=== PATIENT | female | born 1950 | race Hispanic/Latino ===

== ENCOUNTER 2017-01-04 18:34 | Observation (INO) | payer OTHER ==
[~2017-01-04] VITALS: Ht 162.6 cm; Wt 71.5 kg
[~2017-01-04 18:34] MED LIST: ANTIVERT25 MG PO; BACTRIM,SEPT1 TABLET PO; CITRATE OF MAG296 ML PO; COLACE100 MG PO; COZAAR25 MG PO; COZAAR50 MG PO; ELAVIL25 MG PO; ERGOCALCIF50000 UNIT PO; FIORICET,ESG1 TABLET PO; FLEXERIL10 MG PO; FLEXERIL5 MG PO; KEPPRA1000 MG PO; LORTAB 5-325 M1 EACH PO; MECLIZINE HCL25 MG PO; MIRALAX17 GM PO; NAPROXEN500 MG PO; PERCOCET 5/31 TABLET PO; PHENTERMINE HCL30 MG PO; PRAVACHOL10 MG; PRAVASTATIN SOD10 MG PO; PRILOSEC20 MG PO; PYRIDIUM200 MG PO; TRAMADOL HCL50 MG PO; TYLENOL WITH C1 EACH PO; VITAMIN D10000 UNIT; VITAMIN D2400 UNIT PO; ZOFRAN4 MG PO
[2017-01-04 19:10] LABS: HEMATOCRIT 41.2 % (36.0-46.0); MCH 30.2 PG (29.0-34.0); MCHC 32.5 G/DL (30.0-36.0); MCV 92.8 FL (83-99); MEAN PLAT.VOLUME 9.3 uM^3 (9.5-12.4); PLATELET COUNT 312 K/uL (156-360); RBC DIS.WIDTH-CV 12.8 % (11.8-14.6); RBC DIS.WIDTH-SD 42.1 % (39-53); RED BLOOD COUNT 4.44 M/uL (3.80-5.20); WHITE BLOOD COUNT 7.9 K/uL (4.1-10.2)
[2017-01-04 19:20] LABS: CHLORIDE 104 mEq/L (99-109); SODIUM 143 mEq/L (136-147)
[2017-01-04 19:22] LABS: GLUCOSE 139 mg/dL (70-99)
[2017-01-04 19:23] LABS: ANION GAP 9 MEQ/L (2-14)
[2017-01-04 19:24] LABS: TOTAL BILIRUBIN 0.4 mg/dL (0.0-1.0)
[2017-01-04 19:25] LABS: ALKALINE PHOSPHATASE 66 IU/L (3-129)
[2017-01-04 19:26] LABS: GFR ESTIMATE (CALCULATED) > 59 mL/min/
[2017-01-04 19:27] LABS: UREA NITROGEN (BUN) 11 mg/dL (9-23)
[2017-01-04 19:29] LABS: LIPASE 41 U/L (1.0-51.0)
[2017-01-04 19:43] LABS: ADD MIUA? YES; BILIRUBIN NEGATIVE; BLOOD NEGATIVE; COLOR YELLOW ((YELLOW)); GLUCOSE (STRIP) NEGATIVE; KETONES NEGATIVE; LEUKOCYTES MODERATE; NITRITE NEGATIVE; PROTEIN (STRIP) NEGATIVE; SPECIFIC GRAVITY 1.006 (1.000-1.030); UROBILINOGEN 0.2 MG/DL (0.2-1.0)
[2017-01-04 19:50] LABS: BACTERIA RARE /HPF; EPITHELIAL CELLS RARE /HPF; MUCUS TRACE /LPF; RED BLOOD CELLS 0-5 /HPF (0-5); UCUL ADDED? NO; WHITE BLOOD CELLS 15-20 /HPF (0-5)
[2017-01-04 20:12] LABS: TROP-I INTERPRETATION NEGATIVE; TROPONIN-I < 0.01 ng/mL (0.0-0.30)
[2017-01-04 21:46] LABS: TROP-I INTERPRETATION NEGATIVE; TROPONIN-I 0.02 ng/mL (0.0-0.30)
[2017-01-04] MEDS ORDERED: TYLENOL EXTRA500 MG PO (22:07)
[2017-01-04] MEDS ORDERED: ERGOCALCIF50000 UNIT PO (22:08)
[2017-01-04 23:54] VITALS: BP 159/71
[2017-01-05 03:26] LABS: TROP-I INTERPRETATION NEGATIVE; TROPONIN-I < 0.01 ng/mL (0.0-0.30)
[2017-01-05 03:49] VITALS: BP 121/58
[2017-01-05 07:41] LABS: TROP-I INTERPRETATION NEGATIVE; TROPONIN-I < 0.01 ng/mL (0.0-0.30)
[2017-01-05 07:50] LABS: HDL CHOLESTEROL 36 MG/DL (Desirable>=50); LDL CHOLESTEROL 121 mg/dL (Desirable<100); NON-HDL CHOLESTEROL 142 mg/dL (Desirable<160); TOTAL CHOLESTEROL 178 mg/dL (Desirable<200); TRIGLYCERIDES 107 MG/DL (Normal: <150)
[2017-01-05] MEDS ORDERED: MAG-AL PLUS SUS30 ML PO (07:56)
[2017-01-05] MEDS ORDERED: PANTOPRAZOLE SO40 MG PO (07:56)
[2017-01-05] MEDS ORDERED: BACTRIM,SEPT1 TABLET PO (07:56)
[2017-01-05 08:35] VITALS: BP 2125/63
== END 2017-01-05 10:10 | disposition home or self-care (01) ==
LOC: EME 18:34 → EDOF 22:31 → 5WEST 23:35
PROVIDERS: Emergency Medicine; Physician Assistant Medical
DX: N39.0 Urinary tract infection, site not specified (principal); R07.89 Other chest pain; R10.13 Epigastric pain; R01.1 Cardiac murmur, unspecified; G89.29 Other chronic pain; M25.561 Pain in right knee; I10 Essential (primary) hypertension; E55.9 Vitamin D deficiency, unspecified; F32.9 Major depressive disorder, single episode, unspecified; E78.00 Pure hypercholesterolemia, unspecified; E78.5 Hyperlipidemia, unspecified; Z86.73 Personal history of transient ischemic attack (TIA), and cerebral infarction without residual deficits; Z87.891 Personal history of nicotine dependence
CPT/HCPCS: 80053; 80061; 81003; 83690; 84484; 85027; 87077; 87086; 87186; 93005; 93971; 99281; 99285; G0378

== ENCOUNTER 2017-01-29 19:23 | Emergency (ER) | payer OTHER ==
[~2017-01-29] VITALS: Ht 152.4 cm; Wt 72.3 kg
[~2017-01-29 19:23] MED LIST changes: +MAG-AL PLUS SUS30 ML PO; +PANTOPRAZOLE SO40 MG PO; +TYLENOL EXTRA500 MG PO
[2017-01-29] MEDS ORDERED: PERCOCET 5/31 TABLET PO (22:43)
[2017-01-29] MEDS ORDERED: PREDNISONE20 MG PO (22:43)
[2017-01-29 22:58] VITALS: BP 148/64
== END 2017-01-29 22:58 | disposition home or self-care (01) ==
LOC: EME 19:23
DX: S49.92XA Unspecified injury of left shoulder and upper arm, initial encounter (principal); M25.512 Pain in left shoulder; G89.21 Chronic pain due to trauma; X50.3XXA Overexertion from repetitive movements, initial encounter; Y93.B9 Activity, other involving muscle strengthening exercises; E78.5 Hyperlipidemia, unspecified; I10 Essential (primary) hypertension; Z86.73 Personal history of transient ischemic attack (TIA), and cerebral infarction without residual deficits; Z87.891 Personal history of nicotine dependence
CPT/HCPCS: 99281; 99283; J3010; J7512